=== PATIENT | female | born 1960 | race Caucasian/White ===

== ENCOUNTER 2021-11-28 11:08 | Inpatient (IN) | payer BC ==
[~2021-11-28] VITALS: Ht 160 cm; Wt 66.2 kg
[2021-11-28] MEDS ORDERED: LORazepam 1 MG tablet PO ONE (16:15)
--- NOTE | 2021-11-28 16:25 | NUR ---
Patient awake and alert with at bedside. Patient is anxious and is feeling suicidal. Patient has new DX of Bi Polar d/o. Patient's son has it. Patient was on an anti-depressant and it made patient go hypo-manic. Patient started on Effexor a couple of days ago. Patient is on a 1798. Continue to monitor.
[2021-11-28 16:30] LABS: BASOPHILS % (AUTO) 0.4 % (0-1); EOSINOPHILS % (AUTO) 0.6 % (0-6); HEMOGLOBIN 14.7 g/dl (12.0-16.0); LYMPHOCYTES # (AUTO) 1.6 X10'3 (1.1-4.8); MEAN CORPUSCULAR HEMOGLOBIN 30.5 PG (27.0-31.0); MEAN CORPUSCULAR HGB CONC 34.1 g/dL (33.0-36.5); MEAN CORPUSCULAR VOLUME 89.5 FL (78-98); MEAN PLATELET VOLUME 7.6 FL (7.4-10.4); MONOCYTES # (AUTO) 0.6 X10'3 (0-0.9); MONOCYTES % (AUTO) 8.3 % (2-12); NEUTROPHILS # (AUTO) 4.8 X10'3 (1.8-7.7); NEUTROPHILS % (AUTO) 67.7 % (42-75); PLATELET COUNT 311 X10'3 (140-440); WHITE BLOOD COUNT 7.1 X10'3 (4.5-11.0)
[2021-11-28 16:45] LABS: ALANINE AMINOTRANSFERASE 13 U/L (12-78); ALBUMIN/GLOBULIN RATIO 1.1 (1.1-1.5); ALKALINE PHOSPHATASE 51 IU/L (46-116); ANION GAP 13 (8-16); ASPARTATE AMINO TRANSFERASE 15 U/L (10-37); BILIRUBIN,TOTAL 0.5 MG/DL (0.1-1.0); BLOOD UREA NITROGEN 15 MG/DL (7-18); BUN/CREATININE RATIO 18.3 (6.6-38.0); CALCIUM 9.2 MG/DL (8.5-10.1); CHLORIDE 103 MMOL/L (99-107); CREATININE 0.82 MG/DL (0.40-0.90); GLUCOSE 108 MG/DL (70-104); POTASSIUM 3.5 MMOL/L (3.5-5.1); SODIUM 145 MMOL/L (135-145); TOTAL CARBON DIOXIDE 29.1 MMOL/L (24-32); TOTAL PROTEIN 7.7 G/DL (6.4-8.2); eGFR 71 ML/MIN
[2021-11-28 16:53] LABS: ETHANOL < 0.010 GM/DL (0.0-0.010)
[2021-11-28] MEDS ORDERED: EFF37.5XRC PO (17:18)
[2021-11-28] MEDS ORDERED: EST1T PO (17:18)
[2021-11-28 18:04] LABS: URINE AMPHETAMINE SCREEN NEGATIVE (Neg); URINE BARBITUATE SCREEN NEGATIVE (Neg); URINE BENZODIAZEPINES SCREEN NEGATIVE (Neg); URINE CANNABINOID SCREEN NEGATIVE (Neg); URINE COCAINE SCREEN NEGATIVE (Neg); URINE METHADONE SCREEN NEGATIVE (Neg); URINE OPIATE SCREEN NEGATIVE (Neg); URINE PHENCYCLIDINE SCREEN NEGATIVE (Neg)
[2021-11-28 18:21] LABS: CLARITY,URINE CLEAR (Clear); COLOR,URINE YELLOW (Yellow); GLUCOSE, URINE NEGATIVE (Neg); KETONES,URINE 40 mg/dl (Neg); LEUKOCYTE ESTERASE ,URINE NEGATIVE (Neg); NITRITES, URINE NEGATIVE (Neg); OCCULT BLOOD,URINE MODERATE (Neg); PROTEIN,URINE NEGATIVE (Neg); UA COLLECTION TYPE CLN CATCH MIDSTREAM; UROBILINOGEN,URINE 0.2 E.U/dL (0.2-1.0)
[2021-11-28 18:53] LABS: BACTERIA,URINE 2+ /HPF (Neg); MUCUS STRANDS NONE SEEN /LPF (Neg); SQUAMOUS EPITHELIAL CELL,UR FEW /LPF (FEW); WBC CLUMPS,URINE FEW /HPF (NEGATIVE)
--- NOTE | 2021-11-28 19:00 | NUR ---
PT is resting in bed with her by her bedside. Pt and speak with RN about her recent stressors, thier bipolar son and her anxiety has has been crippling. They state she is sometimes so overwhelmed she is unable to speak. She has had thoughts of suicide due to this
--- NOTE | 2021-11-28 20:00 | NUR ---
: Joselito Andrew #[phone] would like to be present when [facility] comes to speak with pt
--- NOTE | 2021-11-29 00:30 | NUR ---
PT asleep on L side respirations even and unlabored
--- NOTE | 2021-11-29 02:13 | NUR ---
PACKET FAXED TO [facility]
--- NOTE | 2021-11-29 04:15 | NUR ---
PT sleeping soundly on back RR even and unlabored
--- NOTE | 2021-11-29 06:03 | NUR ---
pt asked to wait for vitals to be done until after she wakes up, pt has had a lot of trouble sleeping recently
--- NOTE | 2021-11-29 06:30 | NUR ---
Patient sleeping in Bed #20 at this time.
--- NOTE | 2021-11-29 08:45 | NUR ---
Patient's Joselito at bedside visiting with patient. Mauri from [facility] at bedside meeting with patient and her .
[2021-11-29] MEDS: venlafaxine XR 37.5mg cap (Q24H) PO SCH (10:29)
[2021-11-29] MEDS: estradiol 1mg tablet PO SCH (10:29)
--- NOTE | 2021-11-29 10:30 | NUR ---
Patient's departed [facility] to go home to [place] to bring back insurance cards that [facility] and our Registration staff require for billing purposes. Patient resting quietly in bed.
--- NOTE | 2021-11-29 10:34 | NUR ---
Pt laying supine, eyes closed, respirations are even and unlabored. Pt in no acute distress at this time.
--- NOTE | 2021-11-29 12:20 | NUR ---
Patient is currently on a 179 hold and evaluated by Mauri [facility]. Mauri sent a packet to [facility], as this is patient's first choice of places for treatment. Spoke to Jos who informed that it might possibly be on Tuesday or of this week, before we are able to admit any patients. Mauri met with the patient and her and together they made a "safety plan," to either discharge today from [facility], or to wait until there is a facility who might have a bed open for transfer from [facility] to possibly their facility. Mauri gave the patient and her time to converse and make a decision for what was best for the patient. After approximately 10 minutes, the patient and her requested to speak to Mauri again. Per Mauri the patient has made a decision to discharge from [facility]. There appointment with their Psychiatrist is not for 10 days from today. In the event the patient symptoms continue or escalate in nature, they will return to [facility] to receive services and again voice to me that they would want placement to [facility] as their #1 choice. Mauri talked to Dr. Durham and he wrote discharge orders to go home today.
--- NOTE | 2021-11-29 13:28 | NUR ---
Received discharge orders from Dr. Durham. Patient received her belongings from [facility]. Went to the Pharmacy to retrieve the patient's stored medications from them. Reviewed the patient's discharge paperwork from Dr. Durham, and gave them their stored medications and they signed the discharge forms as well as the stored medications form.
--- NOTE | 2021-11-29 14:50 | NUR ---
Patient and are resting at this time. When awake, patient waits for to ask any questions asked. Per patient's , she will not inform, share or seek out any type of communication to inform him of how she is feeling since last April. Pts. reports "I want to know what is going on with her, and she won't tell me how she is feeling, what she's worried about, when she is feeling suicidal, when she leaves our house she doesn't share where she is going. Patient reports that last April 2021, patient left their home in [place] to drive to the store at 10:00 am, then they could not locate her until 2:00 am. states "She took the gun I own with her during the entire period of time she was gone. Thank God she didn't use it. Patient ambulated to the bathroom and is drinking plenty of fluids at this time.
--- NOTE | 2021-11-29 16:16 | NUR ---
Patient up to the bathroom at this time. here and sitting next to the patient in Bed #20. No c/o at this time. Will continue to monitor.
--- NOTE | 2021-11-29 18:30 | NUR ---
Patient is sleeping quietly in a mid fowlers position.
--- NOTE | 2021-11-29 20:00 | NUR ---
Patient awakens, up to bathroom to void. Interview at bedside. Patient is linear, she makes direct eye contact. Patient ponders when asked the question are you feeling suicidal? The patient doesn't answer directly. She states "I don't have a plan." The patient describes feeling quite depressed. She denies any hallucinations. She is tearful at times. Her thought proccess is linear. Speech is normal volume, rate, rhythm, and tone. The patient agrees to accept something for anxiety.
[2021-11-29] MEDS ORDERED: diazepam 5mg tablet PO ONE (20:20)
--- NOTE | 2021-11-29 20:53 | NUR ---
This curriculum writer consulted with Dr. Durham about patients anxiety. Diazepam 5 mg po was ordered and given. She is starting to relax. This patient will transfer to [facility] later this evening. The patient is polite, articulate, and cooperative too.
--- NOTE | 2021-11-29 22:24 | NUR ---
Patient is being transfered to [facility]. She is feeling calm now. She is well oriented and cooperative.
[2021-11-30 00:26] VITALS: BP 137/79
--- NOTE | 2021-11-30 01:33 | NUR ---
Admit Note: Problem: Patient was brought in to the ED by for worsening depression and suicidal ideation. Patient has been dealing with significant depression for at least 7 months seen by her primary care doctor and started antidepressants. However these medications subsequently stopped working and the patient of late has been worsening in her depression. states she has not been eating and sleeping and has endorsed suicidal ideation prompting him to bring her to the ER. notes that the patient started new medication 5 days ago but stopped taking this medication after 2 days. Patient denies any plan but does endorse suicidal ideation. She also reports feeling anxious. Patient denies any auditory or visual hallucination. States she is otherwise healthy and denies past medical history. Denies drugs or alcohol. Intervention: Provided 1:1 assessment, established rapport, active listening and positive encouragement, medication administration, maintained a safe and supportive environment, ensured contract for safety, provided redirection as needed, and maintained Q 15 min safety checks. Response: Patient Pt pleasant and cooperative with admit process. Guarded, minimizes duration and severity of depression, Pt eventually admitted to Depression as far back as 2004 at that time was prescribed Celexa. Long pauses when asked a question. It could be pt has some memory impairment although pt denies any memory impairment. Does not appear to be responding to internal stimuli. Plan: Patient continues to require crisis interruption and stabilization with medication management and monitoring in a safe and therapeutic environment.
[2021-11-30] MEDS ORDERED: acetaminophen 325mg tablet PO PRN ×2 (02:40)
[2021-11-30] MEDS ORDERED: mag hydrox/Alum hydrox/simeth 30ml oral suspension PO PRN (02:40)
[2021-11-30] MEDS ORDERED: loperamide 2mg capsule PO PRN (02:40)
[2021-11-30] MEDS ORDERED: magnesium hydroxide 30ml (MOM) UD suspension PO PRN (02:40)
[2021-11-30 08:00] VITALS: BP 161/79
[2021-11-30] MEDS: venlafaxine XR 37.5mg cap (Q24H) PO SCH (08:50)
[2021-11-30] MEDS: estradiol 1mg tablet PO SCH (08:51)
[2021-11-30] MEDS ORDERED: divalproex sod 125mg tablet.DR PO ONE (16:10)
[2021-11-30] MEDS ORDERED: divalproex 250mg tablet, delayed-release PO ONE (16:30)
[2021-11-30] MEDS ORDERED: divalproex sod 250mg ER (24-hour) tablet PO ONE (17:20)
--- NOTE | 2021-11-30 17:52 | NUR ---
Nursing Progress Note: Problem: Patient was brought in to the ED ON 11/29/21 by for worsening depression and suicidal ideation. Patient has been dealing with significant depression for at least 7 months seen by her primary care doctor and started antidepressants. However these medications subsequently stopped working and the patient of late has been worsening in her depression. states she has not been eating and sleeping and has endorsed suicidal ideation prompting him to bring her to the ER. notes that the patient started new medication 5 days ago but stopped taking this medication after 2 days. Patient denies any plan but does endorse suicidal ideation. She also reports feeling anxious. Patient denies any auditory or visual hallucination. States she is otherwise healthy and denies past medical history. Denies drugs or alcohol. Intervention: Patient woke up at 0735 and was sitting up in bed. Patient took her medications without hesitation. Explained to the patient she will see a provider today, and they will order medications as appropriate for her. Patient reports she did not sleep last night. Explained meal and snack times, and how to request nurse assistance if/when she needs some assistance. Spoke to patient regarding shower list and other orientation items. Response: Patient denies suicidal ideation as of this time. Patient does not verbalize other than answering yes/no. Patient pauses for quite a few minutes and looks away from this hand sign writer, then patient will answer yes or no in a very soft quiet voice. 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 Patient has found jail slightly boring. Plan: Patient continues to require crisis interruption and stabilization with medication management and monitoring in a safe and therapeutic environment.
[2021-11-30 20:00] VITALS: BP 152/68
[2021-11-30] MEDS: divalproex 250mg tablet, delayed-release PO SCH (20:12)
[2021-11-30] MEDS: QUEtiapine 25mg tablet PO SCH (20:12)
[2021-11-30] MEDS: LORazepam 0.5 MG tablet PO PRN (20:13)
--- NOTE | 2021-11-30 22:15 | NUR ---
Pt was tachycardic at the start of shift HR 120 B/P 152/68, pt was c/o of anxiety at the time so nurse administered Ativan 0.5 mg po. Vitals were re evaluated and B/P 152/90 HR 140, pt was diaphoretic, but denying any other symptoms. OCP Dr. Brown was contacted and notified and ordered stat EKG, Troponin, CBC, Chem Panel, Tox screen, also ordered Metoprolol 10 mg IV x1.
[2021-11-30] MEDS ORDERED: metoprolol tartrate 1mg/ml inj IV ONE (22:25)
--- NOTE | 2021-11-30 23:00 | NUR ---
22 gauge IV placed placed in L F/A, labs obtained, EKG read by ER Dr and he stated Non-Stemi, pt is on monitor to evaluate IV Metoprolol per protocol x 30 minutes.
[2021-11-30 23:16] LABS: BASOPHILS % (AUTO) 0 % (0-1); EOSINOPHILS # (AUTO) 0.2 X10'3 (0-0.9); EOSINOPHILS % (AUTO) 1.6 % (0-6); HEMOGLOBIN 14.2 g/dl (12.0-16.0); LYMPHOCYTES # (AUTO) 3.5 X10'3 (1.1-4.8); LYMPHOCYTES % (AUTO) 36.8 % (21-51); MEAN CORPUSCULAR HEMOGLOBIN 30.9 PG (27.0-31.0); MEAN CORPUSCULAR HGB CONC 34.5 g/dL (33.0-36.5); MEAN CORPUSCULAR VOLUME 89.5 FL (78-98); MEAN PLATELET VOLUME 7.8 FL (7.4-10.4); MONOCYTES # (AUTO) 0.7 X10'3 (0-0.9); MONOCYTES % (AUTO) 7.4 % (2-12); NEUTROPHILS # (AUTO) 5.1 X10'3 (1.8-7.7); NEUTROPHILS % (AUTO) 54.2 % (42-75); PLATELET COUNT 302 X10'3 (140-440); RED BLOOD COUNT 4.59 X10'6 (4.20-5.60); RED CELL DISTRIBUTION WIDTH 12.8 % (11.5-14.5); WHITE BLOOD COUNT 9.4 X10'3 (4.5-11.0)
[2021-11-30 23:30] LABS: URINE AMPHETAMINE SCREEN NEGATIVE (Neg); URINE BARBITUATE SCREEN NEGATIVE (Neg); URINE BENZODIAZEPINES SCREEN POSITIVE (Neg); URINE CANNABINOID SCREEN NEGATIVE (Neg); URINE COCAINE SCREEN NEGATIVE (Neg); URINE METHADONE SCREEN NEGATIVE (Neg); URINE OPIATE SCREEN NEGATIVE (Neg); URINE PHENCYCLIDINE SCREEN NEGATIVE (Neg)
[2021-11-30 23:35] LABS: ALANINE AMINOTRANSFERASE 15 U/L (12-78); ALBUMIN 3.7 G/DL (3.4-5.0); ALBUMIN/GLOBULIN RATIO 1.1 (1.1-1.5); ALKALINE PHOSPHATASE 51 IU/L (46-116); ANION GAP 9 (8-16); ASPARTATE AMINO TRANSFERASE 10 U/L (10-37); BILIRUBIN,TOTAL 0.3 MG/DL (0.1-1.0); BLOOD UREA NITROGEN 18 MG/DL (7-18); BUN/CREATININE RATIO 21.4 (6.6-38.0); CHLORIDE 103 MMOL/L (99-107); CREATININE 0.84 MG/DL (0.40-0.90); GLUCOSE 116 MG/DL (70-104); POTASSIUM 3.4 MMOL/L (3.5-5.1); SODIUM 140 MMOL/L (135-145); TOTAL CARBON DIOXIDE 28.5 MMOL/L (24-32); TOTAL PROTEIN 7.1 G/DL (6.4-8.2); eGFR 69 ML/MIN
--- NOTE | 2021-11-30 23:52 | NUR ---
Nursing Progress Note: Problem: Patient was brought in to the ED ON 11/29/21 by for worsening depression and suicidal ideation. Patient has been dealing with significant depression for at least 7 months seen by her primary care doctor and started antidepressants. However these medications subsequently stopped working and the patient of late has been worsening in her depression. states she has not been eating and sleeping and has endorsed suicidal ideation prompting him to bring her to the ER. notes that the patient started new medication 5 days ago but stopped taking this medication after 2 days. Patient denies any plan but does endorse suicidal ideation. She also reports feeling anxious. Patient denies any auditory or visual hallucination. States she is otherwise healthy and denies past medical history. Denies drugs or alcohol. Intervention: Provided 1:1 assessment, established rapport, active listening and positive encouragement, medication administration, maintained a safe and supportive environment, ensured contract for safety, provided redirection as needed, and maintained Q 15 min safety checks. Response: Pt was in bed at change of shift, pt is soft spoke, reports being here for depression. Pt states her day was good and weakly smiles. Pt continues to have depression and anxiety. Pt is quiet and isolates to her room. Pt declined snack. pt reports she didnt sleep well last night. Pts HR was 120 and BP was 152/68 at initial vitals. Pt states she thinks when she started new meds her heart rate has been going up. Pt reports anxiety is 5/10 but pt reported she felt "Ok". Pt denies any hx of etoh/drug use. Pt is diaphoretic, but no tremors/n/v, or HURD is reported. Pt was given PRN ativan but HR remained elevated. OCP was contacted by charge nurse, EKG completed and Metroprolol IV was administered per protocol. Pt was monitored over 30 minutes. Vitals stable. HR82 BP 131/72. Plan: Patient continues to require crisis interruption and stabilization with medication management and monitoring in a safe and therapeutic environment.
[2021-12-01 00:07] VITALS: BP 131/72
[2021-12-01 08:00] VITALS: BP 134/70
[2021-12-01] MEDS: venlafaxine XR 37.5mg cap (Q24H) PO SCH (08:11)
[2021-12-01] MEDS: divalproex 250mg tablet, delayed-release PO SCH ×2 (08:11→20:16)
[2021-12-01] MEDS: estradiol 1mg tablet PO SCH (08:11)
[2021-12-01] MEDS ORDERED: propranolol 10mg tablet PO ONE (11:00)
--- NOTE | 2021-12-01 11:15 | NUR ---
Assessment Presenting Issues: Pt's 5150'd & admitted to [facility] on 11/29 due to increasing depression, anxiety and SI. Interventions: Clinician met w/pt and engaged her in completing a psychosocial assessment. Per Assessment data, pt presents with depressive sxs (poor sleep hygeine, decreasing appetite, "emptiness", loss of interest in activities used to enjoy, loss of sense of purpose, guilt) and significant sxs of anxiety (feeling overwhelmed, recurring unwanted thoughts, excessive worrying, restlessness, inability to concentrate, impulsive decision making). While pt denies SI, "no I don't have thoughts about suicide or even ..." When asked about her drive to [place] a week prior to admission, pt admitted that she took the drive and not wanting to return, but had not thought about it nor planned it. Pt does not feel confident that she can manage her sxs in the home at this time and feels that she would be a burden to her family. [facility] care. Pt is requesting for support to learn ways to manage sxs during her stay @ [facility]. Suicide Risk Assessment (SAD PERSONS Scale) S- 1-Male; 0-Female (More females attempt, more males succeed): Pt-0 A- Age- 1-if <20 or>44 : Pt-1 D- Depression- 1-if depression is present : Pt-1 P-Previous Attempt- 1 if present : Pt-1 E-Ethanol Abuse/Substance Abuse- 1 if present : Pt-0 R-Loss of rational thinking-1 if present : Pt-0 S-Social Supports Lacking- 1 if present : Pt-0 O-Organized Plan- 1 if plan is made & lethal : Pt-0 N-No spouse- 1 if , , , or single : Pt-0 S-Sickness- 1 if chronic, debilitating, and severe :Pt-1 Scorin-2- Send home w/follow-up 3-4- Close follow-up; consider hospitalization 5-6- Strongly consider hospitalization, depending on confidence in follow-up arrangement 5-82-[id number]/commit Pt scored a 4 , her outpatient f/u isn't until December 15, pt continues to experience dpression & anxiety sxs and lack of confidence in her ability to manage nor family's capacity to support her at home, pt has significant unresolved loss/grief issues, experiencing stress associated w/life transitions. Pt expressed willingness to remain in the hospital for continued treatment. Clinician provided psychoed re options available to the attending physician for pt to continue inpatient treatment when the 5150 expires. Pt expressed desire & willingness to sign Vol agreement not to leave AMA. Plan: Clinician will consult w/attending physician re post 5149 dispo for pt. Fatuma Chavarria LCSW Addendum: 12/02/21 at 0955 by Fatuma Chavarria SS Amended: Links added.
[2021-12-01 11:34] LABS: CLARITY,URINE SLIGHTLY CLOUDY (Clear); COLOR,URINE YELLOW (Yellow); GLUCOSE, URINE NEGATIVE (Neg); KETONES,URINE TRACE mg/dl (Neg); LEUKOCYTE ESTERASE ,URINE SMALL (Neg); NITRITES, URINE NEGATIVE (Neg); OCCULT BLOOD,URINE MODERATE (Neg); PROTEIN,URINE NEGATIVE (Neg); UA COLLECTION TYPE NON-SPECIFIED; UROBILINOGEN,URINE 0.2 E.U/dL (0.2-1.0)
[2021-12-01 11:45] LABS: BACTERIA,URINE 2+ /HPF (Neg); MUCUS STRANDS MODERATE /LPF (Neg); SQUAMOUS EPITHELIAL CELL,UR MODERATE /LPF (FEW)
[2021-12-01 11:46] LABS: TRANSITIONAL EPI CELLS,URINE MODERATE /HPF
[2021-12-01] MEDS: propranolol 10mg tablet PO SCH ×2 (13:12→20:16)
[2021-12-01] MEDS: cephalexin 500mg capsule PO SCH ×2 (15:49→23:15)
--- NOTE | 2021-12-01 17:40 | NUR ---
Nursing Progress Note: Problem: Patient was brought in to the ED ON 11/29/21 by for worsening depression and suicidal ideation. Patient has been dealing with significant depression for at least 7 months seen by her primary care doctor and started antidepressants. However these medications subsequently stopped working and the patient of late has been worsening in her depression. states she has not been eating and sleeping and has endorsed suicidal ideation prompting him to bring her to the ER. notes that the patient started new medication 5 days ago but stopped taking this medication after 2 days. Patient denies any plan but does endorse suicidal ideation. She also reports feeling anxious. Patient denies any auditory or visual hallucination. States she is otherwise healthy and denies past medical history. Denies drugs or alcohol. Intervention: Patient was awake at 0645 this morning. Patient walked out to the Observation Room with a blue tourniquet and handed it to this comic writer and stated They left this on me all night, and Im not happy about it. Patients right arm was assessed and it was cold to touch. Radial pulse checked with a pulse easily detected in her right arm. HR was 102 at that time. Patient stated she was up late Because of my heart rate. Patient ate breakfast in the Community Room with her peers, and participated in their communication Response: Patient appears much more relaxed, and is not moving her right hand around as much as previous days. Dr. Paredes saw patient at 1050 this morning with new orders to administer Propanolol at 1100 and repeat at 1300 (lower dose). Collect UA for C&S. Lab work ordered and reviewed. Results show NA at 134 (slightly low). Vital signs repeated at 1300. HR 82 BP 123/61. Patient reports she no longer feels as though her heart is pounding in her chest, and patient has increased her communication at lunch and ate almost all of her meal. Plan: Patient continues to require crisis interruption and stabilization and monitoring in a safe and therapeutic environment. Patient requires new medications, observation of any side effects and reporting them promptly, and continued medication.
[2021-12-01 19:33] VITALS: BP 134/70
[2021-12-01] MEDS: QUEtiapine 25mg tablet PO SCH (20:16)
--- NOTE | 2021-12-01 23:44 | NUR ---
Nursing Progress Note: Problem: Patient was brought in to the ED ON 11/29/21 by for worsening depression and suicidal ideation. Patient has been dealing with significant depression for at least 7 months seen by her primary care doctor and started antidepressants. However these medications subsequently stopped working and the patient of late has been worsening in her depression. states she has not been eating and sleeping and has endorsed suicidal ideation prompting him to bring her to the ER. notes that the patient started new medication 5 days ago but stopped taking this medication after 2 days. Patient denies any plan but does endorse suicidal ideation. She also reports feeling anxious. Patient denies any auditory or visual hallucination. States she is otherwise healthy and denies past medical history. Denies drugs or alcohol. Intervention: Provided 1:1 assessment, established rapport, active listening and positive encouragement, medication administration, maintained a safe and supportive environment, ensured contract for safety, provided redirection as needed, and maintained Q 15 min safety checks. Response: Pt was in group room at change of shift, she is smiling and pleasant and denies s/i. Pt reports she is feeling better and not as depressed/anxious as she was feeling yesterday. Pt met w/provider during shift and returned to her room. Pt was provided HS medication and has prn Seroquel for sleep. Pt had indicated to provider she was concerned she has both PRNs for sleep given at the same time. Explained to pt there are two Seroquel pills equaling one dose and explained she still had a repeat dose available if she needs it. Pt states she understands and went to sleep. Woke pt for her midnight Keflex dose and pt returned to sleep. Plan: Patient continues to require crisis interruption and stabilization with medication management and monitoring in a safe and therapeutic environment.
[2021-12-02 07:14] VITALS: BP 118/64
[2021-12-02] MEDS: cephalexin 500mg capsule PO SCH ×3 (08:40→23:06)
[2021-12-02] MEDS: venlafaxine XR 37.5mg cap (Q24H) PO SCH (08:40)
[2021-12-02] MEDS: propranolol 10mg tablet PO SCH ×3 (08:40→20:31)
[2021-12-02] MEDS: divalproex 250mg tablet, delayed-release PO SCH ×2 (08:40→20:31)
[2021-12-02] MEDS: estradiol 1mg tablet PO SCH (08:41)
--- NOTE | 2021-12-02 10:56 | NUR ---
CM-Continuity of Care Presenting Issues: Pt completed psychosocial assessment yesterday, assessment data & pt's insights/perspective on her experience & current mh condition indicates pt may not be ready for d/c when 5150 expires tonight. Interventions: Clinician consulted w/attending physician re pt's progress and current risks and thoughts & emotions associated w/the expiration of the 5150. Per consultation, attending physician will evaluate for continued inpatient treatment and discuss options via 5250 vs Vol agreement w/pt. Plan: Clinician will provide 1:1 support for pt to learn & practice CBT coping skills to manage depression & anxiety. Fatuma Chavarria LCSW Addendum: 12/02/21 at 1103 by Fatuma Chavarria SS Amended: Links added.
--- NOTE | 2021-12-02 13:58 | NUR ---
Nursing Progress Note: Problem: Pt is here for worsening depression and suicidal ideation. states she has not been eating and sleeping and has endorsed suicidal ideation prompting him to bring her to the ER. Patient denies any plan but does endorse suicidal ideation. She also reports feeling anxious. Intervention: Passed AM medications and provided morning assessment at the bedside. Pt was told during visiting that her mother during the night. This process description writer sat with her listening as she shared what lead up to her mothers . Reassessed HR in the afternoon. BP in AM WNL's. Response: Pt stayed in her room the entire day other than meals and a visit. She spent much of the day crying in her room laying on her bed. She continues to report depression with SI, no plan. She took her medications as prescribed. Her HR at 2pm was 84bpm. No complaints today of chest pain. Plan: Patient continues to require crisis interruption and stabilization and monitoring in a safe and therapeutic environment. Patient requires new medications, observation of any side effects and reporting them promptly, and continued medication.
[2021-12-02] MEDS: LORazepam 0.5 MG tablet PO PRN (16:54)
[2021-12-02 20:16] VITALS: BP 136/52
[2021-12-02 20:20] LABS: MAGNESIUM 1.9 MG/DL (1.5-2.4); POTASSIUM 3.5 MMOL/L (3.5-5.1)
[2021-12-02] MEDS: QUEtiapine 25mg tablet PO SCH (20:31)
--- NOTE | 2021-12-02 21:18 | NUR ---
Nursing Progress Note: Problem: Patient was brought in to the ED ON 11/29/21 by for worsening depression and suicidal ideation. Patient has been dealing with significant depression for at least 7 months seen by her primary care doctor and started antidepressants. However these medications subsequently stopped working and the patient of late has been worsening in her depression. states she has not been eating and sleeping and has endorsed suicidal ideation prompting him to bring her to the ER. notes that the patient started new medication 5 days ago but stopped taking this medication after 2 days. Patient denies any plan but does endorse suicidal ideation. She also reports feeling anxious. Patient denies any auditory or visual hallucination. States she is otherwise healthy and denies past medical history. Denies drugs or alcohol. Intervention: Provided 1:1 assessment, established rapport, active listening and positive encouragement, medication administration, maintained a safe and supportive environment, ensured contract for safety, provided redirection as needed, and maintained Q 15 min safety checks. Blood draw done for labs, pt tolerated well. Labs results WNL. Response: Pt was in her room at change of shift. Pt took call from her . Pts affect has brightened, but she continues to report depression and passive S/I. She states she was feeling depressed and hopeless when she woke up this morning before she heard about her mother. She also states she doesnt feel like she has been sleeping since she's been here. Pt was difficult to wake for her keflex last night and I explained to her she had been sleeping deeply but we will pass it on in report that shes not feeling like shes sleeping well. Pt reports having summer plans of camping with family but still just felt depressed. Pt expressed feeling some guilt because she was caring for he mother when her mother fell and broke her hip. Pt acknowledged it was a situation beyond her control and expresses that she is thankful she was able to spend five weeks w/her mother prior to her . Plan: Patient continues to require crisis interruption and stabilization with medication management and monitoring in a safe and therapeutic environment.
[2021-12-03 06:59] VITALS: BP 117/66
--- NOTE | 2021-12-03 07:16 | NUR ---
Initial: Pt admitted w/ suicidal ideations, UTI, and hypokalemia per EMR. Currently on Regular diet w/ fluctuating PO intake, avg ~75% of meals meeting est nutrient needs at this time. [facility] 11/29 w/ PRN bowel care available. No nutrition intervention implemented at this time, will continue to monitor. Recs 1. Continue Regular diet as tolerated 2. Bowel care per rx 3. Weekly wts Addendum: 12/03/21 at [address] Amended: Links added.
[2021-12-03] MEDS: cephalexin 500mg capsule PO SCH ×3 (08:12→23:44)
[2021-12-03] MEDS: venlafaxine XR 37.5mg cap (Q24H) PO SCH (08:12)
[2021-12-03] MEDS: estradiol 1mg tablet PO SCH (08:12)
[2021-12-03] MEDS: divalproex 250mg tablet, delayed-release PO SCH ×2 (08:12→20:19)
[2021-12-03] MEDS: propranolol 10mg tablet PO SCH ×3 (08:12→20:19)
[2021-12-03 08:35] VITALS: BP 117/66
--- NOTE | 2021-12-03 13:37 | NUR ---
5250 [facility]HE[facility] OMER Diaz
--- NOTE | 2021-12-03 15:41 | NUR ---
Nursing Progress Note: Problem: Pt is here for worsening depression and suicidal ideation. states she has not been eating and sleeping and has endorsed suicidal ideation prompting him to bring her to the ER. Patient denies any plan but does endorse suicidal ideation. She also reports feeling anxious. Intervention: Pt compliant with medication administration. Provided education on the increase of the Venlafaxine. She states, "I don't know what to say to my family about my mothers dying." Prompted pt to come out of her room to journal or spend time around the other pt's. Response: Pt took her medications as prescribed. Acknowledges understanding of the current dosage and frequency of Venlafaxine. Unwilling to talk about her family and the loss of her mother. Visited with her for an hour. Came out of her room for meals and a shower. The rest of the day she isolated to her room. Plan: Patient continues to require crisis interruption and stabilization and monitoring in a safe and therapeutic environment. Patient requires new medications, observation of any side effects and reporting them promptly, and continued medication.
[2021-12-03 19:54] VITALS: BP 130/65
[2021-12-03] MEDS: QUEtiapine 25mg tablet PO SCH (20:19)
[2021-12-03] MEDS: lactobacillus rhamnosus 10,000 MMU CELLS/CAPSULE PO SCH (20:19)
--- NOTE | 2021-12-04 01:10 | NUR ---
Nursing Progress Note: Problem: Pt is here for worsening depression and suicidal ideation. states she has not been eating and sleeping and has endorsed suicidal ideation prompting him to bring her to the ER. Patient denies any plan but does endorse suicidal ideation. She also reports feeling anxious. Intervention: Provided 1:1 assessment, established rapport, active listening and positive encouragement, medication administration, maintained a safe and supportive environment, ensured contract for safety, provided redirection as needed, and maintained Q 15 min safety checks. Response: Patient isolated to room lying in bed for entire evening. Patient denies any MH S/S. Patient refused snack at snack time. Patient asked about [employer] [facility] [employer], medication benefits explained to pt. Patient took antibiotic at midnight w/o complications. Plan: Patient continues to require crisis interruption and stabilization and monitoring in a safe and therapeutic environment. Patient requires new medications, observation of any side effects and reporting them promptly, and continued medication.
[2021-12-04 07:06] VITALS: BP 139/62
[2021-12-04] MEDS ORDERED: divalproex 250mg tablet, delayed-release PO SCH (08:00)
[2021-12-04] MEDS: lactobacillus rhamnosus 10,000 MMU CELLS/CAPSULE PO SCH ×2 (08:03→20:16)
[2021-12-04] MEDS: venlafaxine XR 37.5mg cap (Q24H) PO SCH (08:03)
[2021-12-04] MEDS: estradiol 1mg tablet PO SCH (08:04)
[2021-12-04] MEDS: propranolol 10mg tablet PO SCH ×3 (08:04→20:16)
[2021-12-04] MEDS: cephalexin 500mg capsule PO SCH ×2 (08:06→16:41)
--- NOTE | 2021-12-04 17:26 | NUR ---
Nursing Progress Note: Alice Problem: Pt is here for worsening depression and suicidal ideation. states she has not been eating and sleeping and has endorsed suicidal ideation prompting him to bring her to the ER. Patient denies any plan but does endorse suicidal ideation. She also reports feeling anxious. Today pt. isolated to her room and slept most of the shift, she endorses feeling depressed, and like blah Pt. remains guarded during interaction. Intervention: Judge Clerk continues to provide pt. with a safe and therapeutic environment, clear communication, active listening and positive encouragement. Medications administered. Pt. encouraged to participate in group therapy, and 1:1 assessment provided. Response: Pt. participated in assessment, but often answered minimally. She reports depression and refused needing to get dressed for the day, wash her face or brush her teeth. Pt. attended all meals in the dining room and refused needing snacks. She was often observed sitting alone and avoiding eye contact with cohorts. Pt. did receive a visitor today, but immediately went back to sleep after visiting hours were over. Plan: Patient continues to require crisis interruption and stabilization and monitoring in a safe and therapeutic environment.
[2021-12-04 19:00] VITALS: BP 124/58
[2021-12-04] MEDS: divalproex 250mg tablet, delayed-release PO SCH (20:17)
[2021-12-04] MEDS ORDERED: divalproex sod 125mg tablet.DR PO SCH (21:00)
--- NOTE | 2021-12-04 23:25 | NUR ---
Nursing Progress Note: Problem: Pt is here for worsening depression and suicidal ideation. states she has not been eating and sleeping and has endorsed suicidal ideation prompting him to bring her to the ER. Patient denies any plan but does endorse suicidal ideation. She also reports feeling anxious. Intervention: Provided 1:1 assessment, established rapport, active listening and positive encouragement, medication administration, maintained a safe and supportive environment, ensured contract for safety, provided redirection as needed, and maintained Q 15 min safety checks. Response: Patient in community room watching movie with cohorts making minimal conversation. patient went back to her room and laid down after the movie was finished. The patient denies A/H V/H. S/I H/I. Patient admits to having depression and reports that she made an effort today in hanging out in community room. The patient did not want a snack and went to sleep after evening med pass. Plan: Patient continues to require crisis interruption and stabilization and monitoring in a safe and therapeutic environment. Patient requires new medications, observation of any side effects and reporting them promptly, and continued medication.
[2021-12-05] MEDS: lactobacillus rhamnosus 10,000 MMU CELLS/CAPSULE PO SCH ×2 (07:47→20:37)
[2021-12-05] MEDS: venlafaxine XR 37.5mg cap (Q24H) PO SCH (07:47)
[2021-12-05] MEDS: propranolol 10mg tablet PO SCH ×3 (07:47→21:00)
[2021-12-05] MEDS: divalproex 250mg tablet, delayed-release PO SCH ×2 (07:48→20:37)
[2021-12-05] MEDS: estradiol 1mg tablet PO SCH (07:48)
[2021-12-05 08:00] VITALS: BP 132/55
--- NOTE | 2021-12-05 16:31 | NUR ---
Nursing Progress Note: Alice Problem: Pt is here for worsening depression and suicidal ideation. states she has not been eating and sleeping and has endorsed suicidal ideation prompting him to bring her to the ER. Patient denies any plan but does endorse suicidal ideation. She also reports feeling anxious. Today pt. continues to self-isolate in her room sleeping most of the shift, she continues to endorse feeling depressed. Minimal verbal interaction with administrative underwriter, guarded, and wearing the clothes from yesterday. Intervention: Crocheter Hand continues to provide pt. with a safe and therapeutic environment, clear communication, active listening and positive encouragement. Medications administered. Pt. encouraged to participate in group therapy, and 1:1 assessment provided. Response: Pt. speaks in as soft whisper tone with minimal conversation. She is sleeping in the clothes from yesterday, and did not nor is interested in brushing her hair, or teeth. She did get OOB for her visit with her and to attend all meals, but doesnt engage with other cohorts. Pt. denies SI. Plan: Patient continues to require crisis interruption and stabilization and monitoring in a safe and therapeutic environment.
[2021-12-05] MEDS ORDERED: levoFLOXACIN 500mg tablet PO ONE (17:20)
[2021-12-05 19:00] VITALS: BP 100/57
[2021-12-05] MEDS: QUEtiapine 25mg tablet PO PRN (20:37)
--- NOTE | 2021-12-05 23:41 | NUR ---
Nursing Progress Note: Problem: Pt is here for worsening depression and suicidal ideation. states she has not been eating and sleeping and has endorsed suicidal ideation prompting him to bring her to the ER. Patient denies any plan but does endorse suicidal ideation. She also reports feeling anxious. Intervention: Provided 1:1 assessment, established rapport, active listening and positive encouragement, medication administration, maintained a safe and supportive environment, ensured contract for safety, provided redirection as needed, and maintained Q 15 min safety checks. Response: The patient was in her room and stated that she was having, "about a good a day as yesterday." The pt denies I/S. The patient made minimal conversation and went to lie down in bed. The patient requested Seroquel for sleep stating that she had difficulty sleeping the previous night. Seroquel was provided with evening meds. The patient refused snack and went to bed shortly after. Plan: Patient continues to require crisis interruption and stabilization and monitoring in a safe and therapeutic environment. Patient requires new medications, observation of any side effects and reporting them promptly, and continued medication.
[2021-12-06 07:27] VITALS: BP 116/62
[2021-12-06] MEDS ORDERED: venlafaxine XR 37.5mg cap (Q24H) PO SCH (08:00)
[2021-12-06] MEDS: lactobacillus rhamnosus 10,000 MMU CELLS/CAPSULE PO SCH ×2 (08:07→20:52)
[2021-12-06] MEDS: divalproex 250mg tablet, delayed-release PO SCH ×2 (08:07→20:51)
[2021-12-06] MEDS: estradiol 1mg tablet PO SCH (08:08)
[2021-12-06] MEDS: propranolol 10mg tablet PO SCH ×3 (08:09→20:51)
[2021-12-06] MEDS: levoFLOXACIN 500mg tablet PO SCH (11:01)
--- NOTE | 2021-12-06 16:51 | NUR ---
Nursing Progress Note: Problem: Patient was brought in to the ED ON 11/29/21 by for worsening depression and suicidal ideation. Patient has been dealing with significant depression for at least 7 months seen by her primary care doctor and started antidepressants. Intervention: Patient asleep until approximately 15 minutes before breakfast. Patient appears overall much better since last cared for on 12/01/21. Patient more talkative and smiling much more with some increased interaction with peers in the dining room. Took medications without hesitation. Patient reports feeling slightly improved from admission. Joselito here during visiting hours and reports she is extremely much more interactive with him and disclosing how she is currently feeling, that was not occurring for the past 7months before admission. Patient rested in bed all day between meals, and participated in snack times. Response: Patient appears to be responding to current medication regime as reported by patient, her and this engineering writer. Patient agreed that I still have quite a ways to go. Patient reports she is sleeping well with Trazodone x2 at bedtime. Plan: Patient continues to require crisis interruption and stabilization and monitoring in a safe and therapeutic environment. Patient requires new medications, observation of any side effects and reporting them promptly, and continued medication.
[2021-12-06 19:25] VITALS: BP 116/55
--- NOTE | 2021-12-07 01:12 | NUR ---
Nursing Progress Note: Problem: Pt is here for worsening depression and suicidal ideation. states she has not been eating and sleeping and has endorsed suicidal ideation prompting him to bring her to the ER. Patient denies any plan but does endorse suicidal ideation. She also reports feeling anxious. Intervention: Provided 1:1 assessment, established rapport, active listening and positive encouragement, medication administration and education, maintained a safe and supportive environment, ensured contract for safety, provided redirection as needed, and maintained Q 15 min safety checks. Response: Pt in barajas at start of shift. Affect bland. Pt guarded in response to questions about how she was feeling shrugged her shoulders. Denied SI. Asked about discharge plan she said she did not know when but emphasized it was not tomorrow. Cooperative with care took all medications. Asked some questions about medication, Pt verbalized understanding of medication education. Not observed interacting with other pts went to bed immediately after snack. Plan: Patient continues to require crisis interruption and stabilization and monitoring in a safe and therapeutic environment. Patient requires new medications, observation of any side effects and reporting them promptly, and continued medication.
[2021-12-07 08:00] VITALS: BP 123/60
[2021-12-07] MEDS: divalproex 250mg tablet, delayed-release PO SCH ×2 (08:01→20:10)
[2021-12-07] MEDS: propranolol 10mg tablet PO SCH ×3 (08:01→20:13)
[2021-12-07] MEDS: venlafaxine XR 75mg capsule (Q24H) PO SCH (08:01)
[2021-12-07] MEDS: estradiol 1mg tablet PO SCH (08:01)
[2021-12-07] MEDS: lactobacillus rhamnosus 10,000 MMU CELLS/CAPSULE PO SCH ×2 (08:01→20:10)
[2021-12-07] MEDS: levoFLOXACIN 500mg tablet PO SCH (11:26)
[2021-12-07 12:50] VITALS: BP 143/55
--- NOTE | 2021-12-07 15:13 | NUR ---
Nursing Progress Note: Problem: Patient was brought in to the ED ON 11/29/21 by for worsening depression and suicidal ideation. Patient has been dealing with significant depression for at least 7 months seen by her primary care doctor and started antidepressants. Intervention: Maintained a safe and supportive environment, ensured contract for safety, provided clear and simple instructions, provided active listening and positive encouragement, encouraged participation on the unit. Administered medication as ordered with no adverse side effects. Response: Received patient sleeping at shift change, pt declined a morning cup of coffee stated I will wait for breakfast. Pt continues to isolate to herself. Pt is visible on unit for meals and snacks. Pt feels the medication is helping I am feeling a little better. Pt reports her morning medication made her sleepy, Depakote 250mg tab was added to her morning medication (this was her second dose.) Pt denies suicidal/homicidal thoughts. Plan: Patient continues to require crisis interruption and stabilization and monitoring in a safe and therapeutic environment. Patient continues to endorse depressive symptoms.
[2021-12-07] MEDS ORDERED: ondansetron 4mg rapidly disintigrating tab PO PRN (17:50)
[2021-12-07 19:56] VITALS: BP 106/62
[2021-12-08] MEDS: QUEtiapine 25mg tablet PO PRN (00:25)
--- NOTE | 2021-12-08 01:21 | NUR ---
Nursing Progress Note: Problem: Pt is here for worsening depression and suicidal ideation. states she has not been eating and sleeping and has endorsed suicidal ideation prompting him to bring her to the ER. Patient denies any plan but does endorse suicidal ideation. She also reports feeling anxious. Intervention: Provided 1:1 assessment, established rapport, active listening and positive encouragement, medication administration and education, maintained a safe and supportive environment, ensured contract for safety, provided redirection as needed, and maintained Q 15 min safety checks. Response: Patient sits at the back of the group room. She quietly sits alone and does not join any conversation. Patient says she's doing better, but when asked, she doesn't say what's better. She's guarded and withdrawn. Her affect is flat. She does deny being suicidal. Patient stays in group room all evening. She was compliant with medications, and soon went to bed. Plan: Patient continues to require crisis interruption and stabilization and monitoring in a safe and therapeutic environment. Patient requires new medications, observation of any side effects and reporting them promptly, and continued medication.
[2021-12-08] MEDS: divalproex 250mg tablet, delayed-release PO SCH ×2 (07:57→20:09)
[2021-12-08] MEDS: lactobacillus rhamnosus 10,000 MMU CELLS/CAPSULE PO SCH ×2 (07:57→20:09)
[2021-12-08] MEDS: venlafaxine XR 75mg capsule (Q24H) PO SCH (07:57)
[2021-12-08] MEDS: estradiol 1mg tablet PO SCH (07:58)
[2021-12-08] MEDS: propranolol 10mg tablet PO SCH ×3 (07:58→20:10)
[2021-12-08 08:00] VITALS: BP 106/48
--- NOTE | 2021-12-08 11:12 | NUR ---
Pt. attended group today. Todays group was about the difference between Growth Mindset vs. Fixed Mindset. We learned about the differences and then discussed what aspect of developing a growth mindset they wanted to work on. Pts could work on a vision page to integrate some of the lessons learned from today's group. Pt. engaged minimally in the group, she would answer a question when asked directly otherwise she kept to herself. Her demeanor was pleasant and compliant. She shared that she feels she needs to get better at receiving feedback from others in her life in order to develop a growth mindset. She did not engage in the Vision page activity but did look through magazines but did not seem to want to engage in the compiling of the word and pictures and placing them on a page. Her thought content and thought process appeared to be WNL. Her mood seemed a bit depressive with a restricted affect. Anisha Bryant LCSW
[2021-12-08] MEDS: levoFLOXACIN 500mg tablet PO SCH (11:18)
--- NOTE | 2021-12-08 17:19 | NUR ---
Nursing Progress Note: Problem: Patient was brought in to the ED ON 11/29/21 by for worsening depression and suicidal ideation. Patient has been dealing with significant depression for at least 7 months seen by her primary care doctor and started antidepressants. Intervention: Received patient and she slept until approximately 0750 when breakfast trays were delivered to the unit. Patient reports she is continuing to feel better each day, and feels it would be beneficial for her to return home tomorrow or on with her . Patient reports they have an appointment in [facility] with one of his Associates for a Psychiatry appt on 10/16/20. Spoke with patient and her directly during visiting hours, and he also reiterated her request to be discharged in the next 1-2 days. Encouraged the patient to speak directly with BANDAR Bowser when he sees her today. Response: Patient will speak with Sanchez today regarding her and her husbands Joselito desire to go home tomorrow. They feel her progress is continually improving each day, and would like to continue on their plan to take the medications as prescribed by the here, and see a Provider who resides in [facility]. Plan: Patient continues to require crisis interruption and stabilization and monitoring in a safe and therapeutic environment. Patient requires new medications, observation of any side effects and reporting them promptly, and continued medication.
[2021-12-08 20:23] VITALS: BP 103/85
--- NOTE | 2021-12-09 00:43 | NUR ---
Nursing Progress Note: Problem: Pt is here for worsening depression and suicidal ideation. states she has not been eating and sleeping and has endorsed suicidal ideation prompting him to bring her to the ER. Patient denies any plan but does endorse suicidal ideation. She also reports feeling anxious. Intervention: Provided 1:1 assessment, established rapport, active listening and positive encouragement, medication administration and education, maintained a safe and supportive environment, ensured contract for safety, provided redirection as needed, and maintained Q 15 min safety checks. Response: The patient was seen in the back of the group room, same as yesterday. She reports that she'll probably discharge tomorrow with her , "I hope." She appears a little depressed, but was also able to smile a couple times. She uses few words. She remains guarded and shows little emotion. Patient denies being suicidal anymore. She will probably have a hard time since her mother has passed. Patient was compliant with HS meds before going to bed. Plan: Patient continues to require crisis interruption and stabilization and monitoring in a safe and therapeutic environment. Patient requires new medications, observation of any side effects and reporting them promptly, and continued medication. Maybe DC home on 12/09.
--- NOTE | 2021-12-09 07:27 | NUR ---
Reassessment: Pt currently on Regular diet w/ fluctuating PO intake, avg ~56% of meals and consumes some snacks per documentation, overall meeting est nutrient needs at this time. LBM 12/07 w/ PRN bowel care available. No nutrition intervention implemented at this time, will continue to monitor. Recs 1. Continue Regular diet as tolerated 2. Bowel care per rx 3. Weekly wts Addendum: 12/09/21 at [address] Amended: Links added.
[2021-12-09 07:40] VITALS: BP 126/57
[2021-12-09] MEDS: divalproex 250mg tablet, delayed-release PO SCH (07:58)
[2021-12-09] MEDS: lactobacillus rhamnosus 10,000 MMU CELLS/CAPSULE PO SCH (07:58)
[2021-12-09] MEDS: venlafaxine XR 75mg capsule (Q24H) PO SCH (07:58)
[2021-12-09] MEDS: propranolol 10mg tablet PO SCH (07:58)
[2021-12-09] MEDS: estradiol 1mg tablet PO SCH (07:59)
[2021-12-09] MEDS ORDERED: PROP10TA10 PO (10:30)
[2021-12-09] MEDS ORDERED: QUET25TA36 PO (10:30)
[2021-12-09] MEDS ORDERED: VENL75CA61 PO (10:30)
[2021-12-09] MEDS: levoFLOXACIN 500mg tablet PO SCH (11:06)
--- NOTE | 2021-12-09 11:09 | NUR ---
Discharge Pt scheduled to d/c this morning w/spouse picking up. Pt [facility] @ 1:15PM. Pt was informed to stop by the provider's office to pickers material handlers new pt intake packet. Fatuma Chavarria LCSW Addendum: 12/09/21 at 1110 by Fatuma Chavarria SS Amended: Links added.
[2021-12-09] MEDS ORDERED: DIVA250T4 PO ×2 (11:13)
--- NOTE | 2021-12-09 11:35 | NUR ---
DISCHARGE NOTE: Pt. discharged to home, picked up by in car. Pt. discharged wtih all belongings and valuables. RN went over discharge paperwork with pt. and pt.'s . Pt. verbalized understanding of home medications, f/u plan, firearms restriction, and crisis phone numbers including 911. Pt. signed all discharge paperwork. Pt. denies SI/HI, A/V hallucinations. Pt. is A&Ox4 and in no apparent distress. Pt. verbalized understanding of picking up medications.
== END 2021-12-09 11:35 | disposition home or self-care (01) | DRG 885 ==
LOC: ER 11:08 → ED HOLD 11-29 17:00 → ADULT MH 11-29 22:31
PROVIDERS: ADMIT Psychiatry & Neurology Psychiatry; ATTEND Psychiatry & Neurology Psychiatry
DX: F31.4 Bipolar disorder, current episode depressed, severe, without psychotic features (principal); N39.0 Urinary tract infection, site not specified; R45.851 Suicidal ideations; E87.6 Hypokalemia; R00.0 Tachycardia, unspecified; E66.3 Overweight; Z20.822 Contact with and (suspected) exposure to COVID-19; B96.1 Klebsiella pneumoniae [K. pneumoniae] as the cause of diseases classified elsewhere; Z79.890 Hormone replacement therapy; Z79.899 Other long term (current) drug therapy; Z82.3 Family history of stroke; Z82.49 Family history of ischemic heart disease and other diseases of the circulatory system; Z87.891 Personal history of nicotine dependence; Z28.310 Unvaccinated for COVID-19; Z88.1 Allergy status to other antibiotic agents; Z90.710 Acquired absence of both cervix and uterus; Z68.25 Body mass index [BMI] 25.0-25.9, adult
CPT/HCPCS: 36415; 80053; 80305; 80320; 81001; 83735; 84132; 84145; 84443; 84484; 85025; 87077; 87081; 87088; 87186; 93005; 99285; J3490